=== PATIENT | female | born 1990 | race Two or more races ===

== ENCOUNTER 2024-07-28 16:59 | Emergency (ER) | payer OTHER, SELFPAY ==
[2024-07-28 17:00] VITALS: BMI 34.7
[2024-07-28 17:11] VITALS: BP 134/90; PULSE 116; RESP 18; TEMP 36.9; O2SAT 97
--- NOTE | 2024-07-28 17:16 | EDRME_ITS ---
Rapid Medical Screening Exam [facility] Arrival date/time: 07/28/24 16:59 34-year-old female with no known medical history presents to the emergency room with a chief complaint of vaginal bleeding. Patient states she does not know if she is and states her last menstrual period was on 05/12/2024. Patient then states she had unprotected sex on May 26 and took a morning-after pill right after. Patient is a 6 para 6. Patient states she is changing roughly 3 pads an hour and passing multiple clots. I have greeted and performed a focused initial assessment of this patient. A comprehensive ED assessment and evaluation of the patient, analysis of all test results, and completion of the medical decision making process will be conducted by additional ED providers. Chief Complaint: Vaginal Bleeding Vital signs: Vital Signs Temperature 98.4 F 07/28/24 17:11 Pulse Rate 116 H 07/28/24 17:11 Respiratory Rate 18 07/28/24 17:11 Blood Pressure 134/90 H 07/28/24 17:11 Pulse Oximetry (%) 97 07/28/24 17:11 Oxygen Delivery Method Room Air 07/28/24 17:11 Vital signs reviewed by provider: Yes
--- NOTE | 2024-07-28 17:16 | XR_ITS ---
Examination: Transvaginal ultrasound of the pelvis, complete Technique: Transvaginal sonographic images pelvis performed using garcia scale imaging Exam date and time: July 28, 2024 1745 hours INDICATIONS: Vaginal bleeding, heavy the last 2 days FINDINGS: Uterus 12.3 x 5.8 x 6.9 cm Thickened heterogeneous areas in the lower uterine segment cervix 9.3 x 2.4 x 4.3 cm No intrauterine gestation Right ovary 3.3 cm arterial flow Left ovary 3.2 cm arterial flow 20 mm cyst IMPRESSION: Positive for retained products of conception.
--- NOTE | 2024-07-28 18:15 | EDNOTE_ITS ---
ED OB Contraction Preg RMI/HPI General Chief complaint: Vaginal Bleeding Stated complaint: VAG BLEED HEAVIER THAN 2-3PADS WITHIN HOUR Time Seen by Provider: 07/28/24 18:14 Arrival date/time: 07/28/24 16:59 RME / HPI RME / HPI Narrative: 07/28/24 16:59 34-year-old female with no known medical history presents to the emergency room with a chief complaint of vaginal bleeding. Patient states she does not know if she is and states her last menstrual period was on 05/12/2024. Patient then states she had unprotected sex on May 26 and took a morning-after pill right after. Patient is a 6 para 6. Patient states she is changing roughly 3 pads an hour and passing multiple clots. I have greeted and performed a focused initial assessment of this patient. A comprehensive ED assessment and evaluation of the patient, analysis of all test results, and completion of the medical decision making process will be conducted by additional ED providers. This section includes all my notes and documentations, including HPI, PE, and ED course. Alex Rodriguez MD HPI: 34yo female with no significant past medical history presents to the ED for a chief complaint of vaginal bleeding x Thursday. Patient states her bleeding initially started as heavy, reporting it slowed down, and picked back up heavy again today, so she came in for evaluation. She denies any abdominal pain, fever, chills or any other associated symptoms. She denies any tobacco use. She is not on control, but denies being . No other complaints reported. ROS: All negative except as documented in HPI. Physical Exam: General: Alert and oriented. No acute distress when remaining still. Eyes: Conjunctivae and lids clear. ENT: No nasal congestion. Neck: Supple. Heart: RRR. Lungs: No respiratory distress. Good air movement. No rhonchi, wheezing, rales. Abdomen: Soft and nontender. Legs: No clubbing, cyanosis, edema. Skin: Warm and dry. Neuro: Alert and oriented X 3. I reviewed all diagnostic test results. My review of the US report is retained POC. Blood tests remarkable for beta hCG 7004. At this point, diagnoses include miscarriage. Recommended supportive care. Based on my best medical judgment, made decision no further evaluation or treatment indicated at this time. Patient understands and agrees to the discharge instructions customized and printed, see below. Discharge Instructions from Dr. Rodriguez: 1. After evaluation, you are having a miscarriage. 2. As your body tries to get everything out of your uterus, you will continue to have significant bleeding and pain. 3. Unfortunately we won?t be able to save the baby because it?s too early. Under 20 weeks, unfortunately we can?t help. 4. See a private doctor on 08/01/2024 for recheck and further care, to make sure everything is out of your uterus. 5. Seek immediate medical care for severe bleeding (soaking more than 3 pads per hour), intolerable pain, or with any concerns. Alex Rodriguez MD Related Data Home Medications ?Medication ?Instructions ?Recorded ?Confirmed ferrous sulfate 325 mg (65 mg 325 mg PO QDAY 09/23/20 10/04/22 iron) tablet (iron) Previous Rx's ?Medication ?Instructions ?Recorded acetaminophen 500 mg tablet (Pain 500 mg PO Q6H PRN fe brigid or pain 10/06/22 Reliever (acetaminophen)) #20 tabs ferrous fumarate 325 mg (106 mg 325 mg PO QDAY #30 tab s 10/06/22 iron) tablet (Ferretts) ibuprofen 800 mg tablet 800 mg PO Q8H PRN pain #20 t abs 10/06/22 Allergies Allergy/AdvReac Type Severity Reaction Status Date / Time No Known Drug Allergies Allergy Verified 07/28/24 17:02 Review of Systems Review of Systems Systems Reviewed: All systems reviewed, normal except as documented Past Medical History Past Medical History NEUROLOGIC: Negative Neurological Disorders CARDIAC: Negative Cardiac Disorders or Congestive Heart Failure RESPIRATORY: Negative Chronic Obstructive Pulmonary Disease (COPD) GASTROINTESTINAL: Positive Gastrointestinal Disorders and Obesity; Negative Hepatitis or Colorectal Cancer GENITOURINARY: Negative Genitourinary Disorders, Renal Disease or Prostate Cancer REPRODUCTIVE: Negative Breast Cancer or Testicular Cancer MUSCULOSKELETAL: Negative Musculoskeletal Disorders or Bone Cancer ENDOCRINE: Negative Endocrine Disorders, Diabetes Mellitus Type 1 or Diabetes Mellitus Type 2 HEMATOLOGIC: Positive Blood Disorders and Anemia (WITH PRIOR PREGANCIES) OTHER HISTORY: Positive Blood Transfusions (WITH TWO PRIOR PREGNANCIES IN POST ); Negative Hospitalization, Autoimmune Disease, Down Syndrome, Developmental Delay, Shingles, Falls, Blood Transfusion Reaction, Anesthesia Reactions, Organ Transplant, Chemotherapy, Radiation Therapy, Hyperbaric Therapy, MRSA, VRSA, Vancomycin-Resistant Enterococci, Human Immunodeficiency Virus (HIV), Chicken Pox, Measles, Mumps, Rubella (Bulgarian Measles), Pertussis, Clostridium Difficile, Cancer, Breast Cancer, Cervical Cancer, Colorectal Cancer, Lung Cancer, Ovarian Cancer, Prostate Cancer or Testicular Cancer Family History FAMILY HISTORY: Positive Family Cardiac Disorders (HIGH BLOOD PRESSURE MOTHER) and Family Surgery (MOTHER KNEE SURGERY, CHOLESYSTECTOMY, HERNIA REPAIR, GLAUCOMA REPAIR); Negative Family Psychiatric Problems, Family Respiratory Disorders, Family Gastrointestinal Problems, Family Cancer or Family Anesthesia Reaction Surgical History SURGICAL: Negative Section or Organ Transplant Social History SMOKING STATUS: Never smoker SECOND HAND EXPOSURE: No ED Exam Narrative Physical exam: As noted in HPi. Course Quality Measures none Orders Category Date Time Status US transvaginal Stat Exams 07/28/24 17:16 Completed ABO/RH Type Stat Lab 07/28/24 18:07 Results Beta HCG,Quantitative Stat Lab 07/28/24 18:07 Completed CBC Stat Lab 07/28/24 18:07 Completed CMP [Comprehensive Metabolic Panel] Stat Lab 07/28/24 18:07 Completed HCG,Qualitative Serum Stat Lab 07/28/24 18:07 Completed Vital Signs Vital signs: Vital Signs Temperature 98.4 F 07/28/24 17:11 Pulse Rate 116 H 07/28/24 17:11 Respiratory Rate 18 07/28/24 17:11 Blood Pressure 134/90 H 07/28/24 17:11 Pulse Oximetry (%) 97 07/28/24 17:11 Oxygen Delivery Method Room Air 07/28/24 17:11 Vaginal Bleeding MDM Narrative MDM Narrative: Scribe Attestation: 07/28/24 - Chely Lo am scribing for and in the presence of Dr. Rodriguez. Patient data External records reviewed:: [facility] previous records (Per chart review, patient was seen here on 07/10/23 for avulsion of the skin.) Clinical information provided by:: patient Social determinants that could affect healthcare access:: none Patient has the following chronic illnesses:: none How is presenting disease/condition affected by chronic disease/condition?: no chronic disease Evaluation data The following diagnostics were reviewed and interpreted by me:: lab results and radiology exam(s) Lab and/or radiology exams considered but not ordered:: none Interpretation Summary: Miscarriage Medications / Prescriptions Medications or Prescriptions considered but not ordered:: none Medication administrations:: None Consultations Consultation(s) initiated? (list below): No Diagnosis Vaginal Bleeding Differential Diagnosis: missed , threatened , dysfunctional uterine bleeding, menometrorrhagia, incomplete , ectopic without intrauterine and vaginal bleeding Most likely diagnosis given after review of the tests above:: miscarriage Admission Indicated Admission indicated?: not indicated Explain why admission is indicated or not indicated:: No criteria for admission. Admission Request Was there a request for admission?: No Disposition Plan Disposition Plan: Discharge Discharge Attestation Discharge Attestation: The patient and all family members were given an opportunity to ask questions and understood the discharge instructions. Discharge instructions specifically effects, indications for sooner follow up or return to the emergency department, and the expected course of current diagnosis. Patient condition: Stable Discharge Plan Plan Patient Disposition: HOME (Self Care) Prescriptions/Referrals Prescriptions/Med Rec: No Action ferrous sulfate [iron] 325 mg (65 mg iron) Tablet 325 mg PO QDAY acetaminophen [Pain Reliever (acetaminophen)] 500 mg tablet 500 mg PO Q6H PRN (Reason: fever or pain) Qty: 20 0RF ibuprofen 800 mg tablet 800 mg PO Q8H PRN (Reason: pain) Qty: 20 0RF Ferretts 325 mg (106 mg iron) tablet 325 mg PO QDAY Qty: 30 0RF Referrals: Adryan Reyes MD [Primary Care Provider] - In 1 week Problem List Clinical Impression: Miscarriage Patient/Caregiver Discharge Instructions Discharge Activity: activity as tolerated Education Materials: ED MISCARRIAGE Completed, ED Possible Miscarriage ... Additional Instructions: Discharge Instructions from Dr. Rodriguez: 1.? ? ? After evaluation, you are having a miscarriage. 2.? ? ? As your body tries to get everything out of your uterus, you will continue to have significant bleeding and pain. 3.? ? ? Unfortunately we won?t be able to save the baby because it?s too early.? Under 20 weeks, unfortunately we can?t help.?? 4.? ? ? See a private doctor on 08/01/2024 for recheck and further care, to make sure everything is out of your uterus. 5.? ? ? Seek immediate medical care for severe bleeding (soaking more than 3 pads per hour), intolerable pain, or with any concerns.? Print Language: Turkish Stand Alone Forms: Penelope Award Info., Patient Portal Info Letter
[2024-07-28 18:19] LABS: Basophils # (Auto) 0.1 Thou/mm3 (0.0-0.2); Basophils % (Auto) 1 % (0-2.5); Eosinophils # (Auto) 0.3 Thou/mm3 (0.0-0.5); Eosinophils % (Auto) 2 % (0-10); Hematocrit 31.3 % (36.0-46.0); Hemoglobin 10.1 g/dL (12.0-16.0); Immature Granulocytes % (Auto) 0 % (0-0); Immature Granulocytes Auto 0.06 Thou/mm3 (0.00-0.00); Lymphocytes # (Auto) 2.5 Thou/mm3 (1.0-4.8); Lymphocytes % (Auto) 17 % (10-50); Mean Corpuscular HGB Conc 32.3 g/dl (31.0-37.0); Mean Corpuscular Hemoglobin 24.3 pg (25.0-35.0); Mean Corpuscular Volume 75 fL (80-100); Monocytes # (Auto) 0.6 Thou/mm3 (0.0-0.8); Monocytes % (Auto) 4 % (0-12); Neutrophils # (Auto) 10.9 Thou/mm3 (1.8-7.7); Neutrophils % (Auto) 76 % (37-80); Nucleated Red Blood Cell % 0 /100 WBC (0); Platelet Count 369 Thou/mm3 (140-440); Red Blood Count 4.16 Miln/mm3 (4.00-5.20); White Blood Count 14.5 Thou/mm3 (3.6-11.0)
[2024-07-28 18:45] LABS: Alanine Aminotransferase 13 U/L (10-49); Albumin, Serum 4.4 gm/dL (3.5-5.0); Albumin/Globulin Ratio 1.6 (1.2-2.2); Alkaline Phosphatase 91 U/L (46-116); Anion Gap 8 (7-16); Aspartate Amino Transferase 18 U/L (0-34); BUN/Creatinine Ratio 14 Ratio (12-20); Bilirubin,Total 0.3 mg/dL (0.3-1.2); Blood Urea Nitrogen 10 mg/dL (9-23); Calcium 9.1 mg/dL (8.3-10.6); Calcium (Corrected) 9.1 mg/dL (8.5-10.1); Carbon Dioxide 20.5 mMol/L (20.0-31.0); Chloride 109 mMol/L (98-107); Creatinine (Component) 0.7 mg/dL (0.6-1.3); Estimated Creatinine Clearance 117.5 mL/min (>60); Globulin 2.8 gm/dL (2.3-3.5); Glucose 109 mg/dL (74-106); Osmolality,Calculated 273 (275-295); Potassium 4.3 mMol/L (3.4-5.1); Sodium 137 mMol/L (136-145); Total Protein 7.2 gm/dL (5.7-8.2); eGFR > 60 See Note
[2024-07-28 19:14] LABS: Beta HCG,Quantitative 7004 mIU/mL (<5.0)
[2024-07-28 19:22] LABS: HCG,Qualitative Serum Positive
== END 2024-07-28 19:04 | disposition home or self-care (01) ==
PROVIDERS: Nurse Practitioner Family; Emergency Provider Emergency Medicine; PCP Family Medicine
DX: O03.9 Complete or unspecified spontaneous abortion without complication (principal)
CPT/HCPCS: 36415; 76830; 80053; 81001; 84702; 84703; 85025; 86900; 86901; 99284